=== PATIENT | female | born 1980 | race Caucasian/White ===

== ENCOUNTER 2016-11-25 19:19 | Emergency (ER) | payer SELFPAY ==
[2016-11-25] MEDS ORDERED: ASPIRIN 81 MG CHEW TAB ONE (19:29)
[2016-11-25] MEDS: ASPIRIN 81 MG CHEW TAB PO ONE (19:38)
[2016-11-25] MEDS ORDERED: NITROGLYCERIN 0.4 MG TAB.SUBL SL ONE (19:39)
[2016-11-25] MEDS: NITROGLYCERIN 0.4 MG TAB.SUBL SL PRN (19:42)
[2016-11-25] MEDS ORDERED: Lidocaine 2%Visc 15ml 20 MG/ML UDC ONE (19:45)
[2016-11-25] MEDS ORDERED: MAGNESIUM HYDROXIDE/AL HYDROX 30 ML UDC PO ONE (19:45)
[2016-11-25] MEDS: MAG HYDROX/AL HYDROX/SIMETH 30 ML, Lidocaine 2%Visc 15ml 20 MG, PHENobarb/HYOSCY/ATROPI... PO ONE ×3 (19:50)
--- NOTE | 2016-11-25 19:59 | ED Physician Documentation ---
Chest Pain - HISTORIAN Historian: patient - HPI Chief Complaint: Chest Pain Onset: other (started earlier today then went away, aobut one hour ago returned and has remained.) Timing: gradual onset Duration: persistent Last known Well Date: 11/25/16 Last Known Well Time: 14:00 Context: rest Severity: moderate Chest Pain Radiation: other Chest Pain Signs/Symptoms: nausea. denies: diaphoresis, dyspnea, tachypnea, tachycardia, palpitations Worsened By: deep breaths, change in position Relieved By: nothing Further Comments: yes - ROS CONST: none. denies: fever, chills - PAST HX [place] risk factors: no pertinent history Lung disease: denies: asthma Surgeries/Procedures: other (vein stripping) Allergies/Adverse Reactions: Allergies Allergy/AdvReac Type Severity Reaction Status Date / Time nitrofurantoin Allergy Verified 11/25/16 19:40 [From Macrobid] nitrofurantoin Allergy Verified 11/25/16 19:40 macrocrystalline [From Macrobid] Penicillins Allergy Verified 11/25/16 19:40 lactase AdvReac Diarrhea Verified 11/25/16 19:40 Home Medications: Ambulatory Orders Medication Instructions Recorded Cetirizine HCl [Zyrtec] 10 mg PO D 11/25/16 Duloxetine HCl [Cymbalta] 60 mg PO D 11/25/16 Levothyroxine Sodium [Synthroid] 50 mcg PO D 11/25/16 Verapamil HCl [Verapamil Sr] 240 mg PO D 11/25/16 - SOCIAL HX Smoking History: non-smoker Alcohol Use: none Drug Use: none - FAMILY HX Family HX: other (Mother CAD) - REVIEWED ASSESSMENTS Nursing Assessment Reviewed: Yes Vitals Reviewed: Yes Progress - Progress Progress: 19:41 no change in pain, will give GI cocktail 20:20 Pain has improved some, will give tordol IV 21:27 Pain is improved, awaiting CT results - EKG/XRAY/CT EKG: NSR, nonspecific ST T wave chg ED Results Lab/Radiology - Radiology Radiology Impressions: Patient Study Name: PATRIC MILLER Date: Nov 25, 2016 7:56:36 PM CDT Modality Type: CR Gender: F Description: CHEST : 84 Institution: [facility] Physician: JACLYN CORDON - [facility] Chest -two views CLINICAL HISTORY: Chest pain starting today. FINDINGS: Examination of the chest PA and lateral views with no prior film for comparison demonstrates lungs to be clear. Cardiac silhouette is within normal limits. Monitor leads superimpose the chest. Bony thorax is intact. The aortic arch appears prominent on the PA view although this may be projectional. There is no obvious aortic abnormality on the lateral view. Comparison with prior studies is recommended or follow-up CT scan for definitive evaluation. IMPRESSION: No active pulmonary disease. Prominence of the aortic arch on the PA view. Consider CT for definitive evaluation. CT pulmonary angiogram CLINICAL HISTORY: Chest pain and elevated D-dimer. Rule out pulmonary embolus. Contrast administered: 80 mL of Omnipaque 300. TECHNIQUE: CT pulmonary angiography is performed with intravenous infusion of contrast. Sagittal and coronal MIP reconstructions are performed by the technologist. FINDINGS: The lungs are free of coalescent infiltrate. There is no pleural effusion or significant pleural thickening. Vascular structures enhance normally. 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 There is no filling defect in the pulmonary arteries or vascular cutoff to suggest the diagnosis of pulmonary embolus. IMPRESSION: No pulmonary embolus. Right-sided aortic arch with aberrant left subclavian artery. Chest Pain Physical Exam - EXAM General Appearance: moderate distress EENT: eye inspection normal, ENT inspection normal, pharynx normal, no signs of dehydration Neck: nml inspection, no carotid bruit, JVD present. No: lymphadenopathy Respiratory: no resp. distress, chest non-tender, nml breath sounds, resp.distress, other (Patient is tender to palpation over the ant and post chest wall, no sub q air/crepitus noted) CVS: reg. rate & rhythm, no murmur, no gallop, no friction rub, pulses full, pulses equal Abdomen: soft, no organomegaly, normal bowel sounds, no distension, tenderness ( epigastric area). No: rebound, distended, guarding Skin: warm/dry, normal color Extremities: non-tender Neuro: motor nml, sensation nml, cognition normal. No: mood/affect nml (anxious ) Discharge Clincal Impression: Chest pain Qualifiers: Chest pain type: chest pain on breathing Qualified Code(s): R07.1 - Chest pain on breathing Referrals: Primary Doctor,No [Primary Care Provider] - 2 Days Additional Instructions: Start taking some Aleve (220mg tablets) 2 tablets twice a day with food. (For possible chest wall pain). Follow up with your primary care provider for further evaluation and treatment. Home Medications: Ambulatory Orders Cetirizine HCl [Zyrtec] 10 mg PO D 11/25/16 Duloxetine HCl [Cymbalta] 60 mg PO D 11/25/16 Levothyroxine Sodium [Synthroid] 50 mcg PO D 11/25/16 Verapamil HCl [Verapamil Sr] 240 mg PO D 11/25/16 Condition: Stable Disposition: 01 HOME, SELF-CARE Decision to Admit: NO Date of Decison to Admit: 11/25/16 Decision Time: 21:49
[2016-11-25 20:04] LABS: eGFR (African) > 60; eGFR (Non-African) > 60
[2016-11-25 20:16] LABS: BASOPHILS % 0.5 (0.0-1.5); EOSINOPHILS % 0.2 % (0.0-6.8); MEAN CORPUSCULAR HEMOGLOBIN 33.3 pg (28.0-34.0); MEAN CORPUSCULAR VOLUME 86.8 fl (80.0-100.0); MONOCYTES % 1.5 % (0.0-11.0); NEUTROPHILS # 7.8 # k/uL (1.4-7.7)
[2016-11-25] MEDS: KETOROLAC TROMETHAMINE 30 MG/1ML VIAL IVP ONE (20:20)
[2016-11-25 22:10] VITALS: BP 111/66
--- NOTE | 2016-11-26 00:06 | Diagnostic Imaging Report ---
JACLYN CORDON~ [facility] [address] [facility] [address] [place] [id number]. [id number] ~ ~ ~ ~ Report Submission Date: Nov 25, 2016 8:11:49 PM CDT Patient ~ Study Name: PATRIC MILLER ~ Date: Nov 25, 2016 7:56:36 PM CDT ~ Modality Type: CR Gender: F ~ Description: CHEST : 84 ~ Institution: [facility] Physician: JACLYN CORDON ~ ~ ~ ~ Chest -two views CLINICAL HISTORY: ~ Chest pain starting today. FINDINGS: ~ Examination of the chest PA and lateral views with no prior film for comparison demonstrates lungs to be clear. ~Cardiac silhouette is within normal limits. ~ Monitor leads superimpose the chest. ~Bony thorax is intact. ~The aortic arch appears prominent on the PA view although this may be projectional. ~There is no obvious aortic abnormality on the lateral view. ~Comparison with prior studies is recommended or follow-up CT scan for definitive evaluation. IMPRESSION: ~ No active pulmonary disease. ~ Prominence of the aortic arch on the PA view. ~Consider CT for definitive evaluation. ~ Electronically signed on Nov 25, 2016 8:11:49 PM CDT by: Mauro IBRAHIM
--- NOTE | 2016-11-26 00:07 | Diagnostic Imaging Report ---
JACLYN CORDON~ [facility] [address] [facility] [address] [place] [address]. [phone] ~ ~ ~ ~ Report Submission Date: Nov 25, 2016 8:11:49 PM CDT Patient ~ Study Name: PATRIC MILLER ~ Date: Nov 25, 2016 7:56:36 PM CDT ~ Modality Type: CR Gender: F ~ Description: CHEST : 84 ~ Institution: [facility] Physician: JACLYN CORDON ~ ~ ~ ~ Chest -two views CLINICAL HISTORY: ~ Chest pain starting today. FINDINGS: ~ Examination of the chest PA and lateral views with no prior film for comparison demonstrates lungs to be clear. ~Cardiac silhouette is within normal limits. ~ Monitor leads superimpose the chest. ~Bony thorax is intact. ~The aortic arch appears prominent on the PA view although this may be projectional. ~There is no obvious aortic abnormality on the lateral view. ~Comparison with prior studies is recommended or follow-up CT scan for definitive evaluation. IMPRESSION: ~ No active pulmonary disease. ~ Prominence of the aortic arch on the PA view. ~Consider CT for definitive evaluation. ~ Electronically signed on Nov 25, 2016 8:11:49 PM CDT by: Mauro IBRAHIM
== END 2016-11-25 21:55 | disposition home or self-care (01) ==
LOC: ED 19:19
DX: R07.1 Chest pain on breathing (principal)
CPT/HCPCS: 71020; 71260; 80053; 84484; 85025; 85379; 93005; A9270; J1885; Q9966; 96372; 99283; S1016